=== PATIENT | female | born 1935 | race Caucasian/White ===

== ENCOUNTER → 2016-09-29 | Outpatient (CLI) | payer OTHER, MEDICARE ==
[~2016-09-29] MED LIST: ACET-1138 PO; ASPEC325 PO; ATEN50TA8 PO; CALC-51 PO; CARDIO PLUS PO; COEN100C7 PO; FRRG PO; HYDR25TA4 PO; LIDOCAINE 5% EXT; LOSA50TA6 PO; THYROID COMPLEX PO; ULT50X PO; [UNRECOGNIZED DRUG - OTHER] PO; [UNRECOGNIZED DRUG - OTHER] PO
--- NOTE | 2016-09-30 13:03 | MAMMOGRAPHY REPORT ---
BILATERAL DIGITAL SCREENING MAMMOGRAM WITH CAD: 09/29/2016 CLINICAL HISTORY: Routine screening examination. TECHNIQUE: Bilateral CC, MLO and repeat right MLO views were obtained. Current study was also evalu ated with a Computer Aided Detection (CAD) system. COMPARISON: Comparison is made to exams dated: 09/26/2015 mammogram, 09/23/2013 mammogram, 09/25/2014 mammogram, 12/19/2011 mammogram, 12/17/2010 mammogram, and 12/10/2009 mammogram - [facility]. BREAST COMPOSITION: There are scattered areas of fibroglandular density in both breasts. FINDINGS: There are a few benign calcifications in the breasts. Stable asymmetry in the lateral lef t breast. No suspicious mass, architectural distortion or cluster of microcalcifications is seen. IMPRESSION: ACR BI-RADS CATEGORY 1: NEGATIVE There is no mammographic evidence of malignancy. A 1 year screening mammogram is recommended. The p atient will receive written notification of the results. Approximately 10% of breast cancers are not detected with mammography. A negative mammographic repor t should not delay biopsy if a clinically suggestive mass is present. Sarah Dash M.D. ay/:09/29/2016 15:30:49 [employer] Business Analyst: Yvonne PERDUE(Milly)(M), [facility] letter sent: Normal 1/2 BI-RADS Code: ACR BI-RADS Category 1: Negative
== END | disposition home or self-care (01) ==
LOC: C.MAMM 10:08
PROVIDERS: ATTEND Family Medicine
DX: Z12.31 Encounter for screening mammogram for malignant neoplasm of breast (principal)

== ENCOUNTER → 2017-10-27 | Outpatient (CLI) | payer OTHER, MEDICARE ==
--- NOTE | 2017-10-28 14:14 | MAMMOGRAPHY REPORT ---
BILATERAL DIGITAL SCREENING MAMMOGRAM TOMOSYNTHESIS WITH CAD: 10/27/2017 CLINICAL HISTORY: Routine screening. Patient has no complaints. TECHNIQUE: Breast tomosynthesis in addition to standard 2D mammography was performed. Current study was also evaluated with a Computer Aided Detection (CAD) system. COMPARISON: Comparison is made to exams dated: 09/29/2016 mammogram, 09/26/2015 mammogram, 09/25/2014 m ammogram, 09/23/2013 mammogram, 12/19/2011 mammogram, and 12/10/2009 mammogram - [facility]ter. BREAST COMPOSITION: There are scattered areas of fibroglandular density in both breasts. FINDINGS: No suspicious masses, calcifications, or areas of architectural distortion are noted in ei ther breast. There has been no significant interval change compared to prior exams. Scattered bilater al benign-appearing calcifications are not significantly changed. IMPRESSION: ACR BI-RADS CATEGORY 2: BENIGN There is no mammographic evidence of malignancy. A 1 year screening mammogram is recommended. The pa tient will receive written notification of the results. Approximately 10% of breast cancers are not detected with mammography. A negative mammographic report should not delay biopsy if a clinically suggestive mass is present. Araceli Guerrier M.D. /:10/27/2017 15:56:45 Stove Polisher: Yvonne HERRMANN)(M), [facility] letter sent: Normal 1/2 BI-RADS Code: ACR BI-RADS Category 2: Benign
== END | disposition home or self-care (01) ==
LOC: C.MAMM 13:36
PROVIDERS: ATTEND Family Medicine
DX: Z12.31 Encounter for screening mammogram for malignant neoplasm of breast (principal)

== ENCOUNTER 2022-08-16 15:30 | Inpatient (IN) ==
[2022-08-16 16:12] LABS: Basophils # (auto) 0.04 K/uL (0-0.2); Basophils % (auto) 0.5 %; Eosinophils # (auto) 0.16 K/uL (0-0.50); Eosinophils % (auto) 2.1 %; Hematocrit (blood only) 39.5 % (34.1-44.9); Hemoglobin 13.4 g/dl (12.0-16.0); Immature Granulocytes # (auto) 0.02 K/uL (0.00-0.02); Immature Granulocytes % (auto) 0.3 %; Lymphocytes # (auto) 2.18 K/uL (1.2-3.4); Lymphocytes % (auto) 28.8 %; Mean Corpuscular Hemoglobin 31.5 pg (25.0-34.0); Mean Corpuscular Hgb Conc 33.9 g/dL (32.0-36.0); Mean Corpuscular Volume 92.7 fL (80.0-100.0); Mean Platelet Volume 10.8 fL (9.4-12.3); Monocytes # (auto) 0.45 K/uL (0.24-0.82); Monocytes % (auto) 5.9 %; Neutrophils # (auto) 4.72 K/uL (1.4-6.5); Neutrophils % (auto) 62.4 %; Platelet Count 235 K/uL (130-400); RDW Coefficient of Variation 13.9 % (11.5-14.5); RDW Standard Deviation 47.4 fL (36.4-46.3); Red Blood Count 4.26 M/uL (3.93-5.22); White Blood Count 7.57 K/ul (4.8-10.8)
[2022-08-16 16:34] LABS: Albumin Globulin Ratio 1.2 (0.9-2); Albumin Level 4.3 gm/dl (3.4-5.0); BUN Creatinine Ratio 33.8 (10-20); Bilirubin,Total 0.3 mg/dl (0.2-1.0); Calcium 9.4 mg/dl (8.5-10.1); Est GFR (African American) 94.5 ml/min; Est GFR (Non-African American) 81.5 ml/min; Globulin 3.6 gm/dl (2.5-4.0); Potassium 3.5 mmol/L (3.5-5.1); Total Protein 7.9 gm/dl (6.0-8.3)
[2022-08-16 16:39] LABS: Appearance Urine Clear (Clear); Bacteria Urine Automated Negative (Negative); Bilirubin Urine Negative (Negative); Blood Urine Negative (Negative); Color Urine Dark Yellow; Epithelial Cell Urine Auto >30 /lpf (0-5); Glucose Urine UA Negative (Negative); Ketones Urine Negative (Negative); Leukocyte Esterase Urine Trace (Negative); Nitrite Urine Negative (Negative); Protein Urine Negative (Negative); RBC Urine Automated 0-4 /hpf (0-4); Specific Gravity Urine 1.013 (1.000-1.030); Urobilinogen Urine Negative (Negative); pH Urine 5.5 (4.5-7.5)
--- NOTE | 2022-08-16 17:20 | XRay Report ---
XR chest 1V portable HISTORY: 86 years-old Female chest pain . Acute chest pain COMPARISON: Chest 04/09/2021 TECHNIQUE: AP view of the chest FINDINGS: Cardiac silhouette is enlarged. Atherosclerosis of the aorta. No pneumothorax, pleural effusion, airs pace consolidation or overt pulmonary edema. Degenerative changes of the shoulders and spine. IMPRESSION: No acute process. ACT 112: Negative or not required by law. The above report was generated using voice recognition software. It may contain grammatical, syntax o r spelling errors. Electronically signed by: Carloz Medina M.D. 08/16/2022 5:18 PM
--- NOTE | 2022-08-16 17:22 | Emergency Department Note ---
Impression & Plan Hypertension, Palpitations, Abnormal ECG ED Provider Note NAME: CHELLY SEYMOUR AGE: 86 SEX: F : 1935 ARRIVES VIA: Walk-In INFORMANT: Patient, daughter ED PROVIDER(S): Ander Loco DO CHIEF COMPLAINT: Feeling her heart race HPI: Patient is an 86-year-old female who presents the ER following feeling her heart race. This occurred around 3pm today. She felt her heart racing up to 108. She felt weak. She denies any headache or change in vision. This was coming going intermittently. She denies any chest pain. This lasted for about 20 minutes. No belly pain, nausea, vomiting or diarrhea. No dysuria, urgency, or frequency. She did check her blood pressure and it was elevated around nearly 200. She notes her blood pressure medications have been taken today as previously prescribed. PAST MEDICAL HISTORY:See Below PAST SURGICAL HISTORY:See Below FAMILY HISTORY:See Below SOCIAL HISTORY:See Below HOME MEDICATIONS:See Below ALLERGIES:See Below VITALS:See Below PHYSICAL EXAMINATION: GENERAL: Sitting up in bed, alert, well appearing, well nourished, no distress, non-toxic EYE EXAM: normal conjunctiva. PERRL and EOM's intact. OROPHARYNX: no exudate, no erythema, lips, buccal mucosa, and tongue normal and mucous membranes are moist NECK: supple, no nuchal rigidity, no adenopathy, non-tender LUNGS: Clear to auscultation. Normal chest wall mechanics HEART: no murmurs, S1 normal and S2 normal ABDOMEN: abdomen soft, non-tender, normo-active bowel sounds, no masses, no rebound or guarding. UPPER EXTREMITIES: upper extremities are grossly normal. LOWER EXTREMITIES: No pitting edema. NEURO EXAM: Normal sensorium, cranial nerves II-XII grossly intact, normal speech, no weakness of arms, no weakness of legs. No drift. Finger to nose intact. Gross sensation intact. MEDICAL DECISION MAKING: Patient is an 86-year-old female who presents the ER for palpitations and elevated blood pressure. Systolic pressures were 200. IV was established blood work is obtained. Labs show no significant leukocytosis or anemia. External records were reviewed. BMP with no hyperkalemia or acidosis. Glucose mildly elevated 115. No transaminitis. Troponins were negative. TSH unremarkable. UA was clean. COVID-negative. Portable AP upright 1 view of the chest per my read was unremarkable. Patient was given IV hydralazine. Systolic pressure trended down to 170s. EKG was changed from previous which was over a year ago. She was updated bedside with the elevated blood pressures. Discussed with hospitalist for further evaluation regards to presentation work-up and treatment. Triage Nursing notes reviewed. Limited review of prior medical records performed Vital Signs: reviewed and remarkable for no significant abnormalities Differential diagnosis: Cardiac ischemia, aortic dissection, pulmonary embolism, pneumothorax, pneumonia, pericarditis, myocarditis, esophageal rupture, GERD, cholecystitis, pancreatitis, musculoskeletal, as well as other pathologies. ER treatment provided: See below Diagnostics interpreted by me include EKG and cardiac monitoring as listed below: -Cardiac Monitoring: An order was placed for continuous cardiac monitoring. The monitor shows a rate of 70 with sinus rhythm. -ECG: Sinus rhythm rate 65 Left axis No PVCs QTC 424 T wave inversion in the high lateral leads EKG has slightly changed in comparison to previous back in 2020 -Laboratory studies:Interpreted by me as stated above in MDM and shown below. Imaging studies: Xrays: As interpreted by me: Portable AP upright 1 view of the chest unremarkable CTs show: none Consultation(s): Discussed with Dr. Kennedy from [facility] service in regards to presentation work-up and treatment. Procedures:none Critical Care: None Past Med/Surg History Medical History Acid reflux Arthritis Cardiac murmur dx 1 yr ago> Dr. Solano Carpal tunnel syndrome Diverticular disease High cholesterol HTN (hypertension) Nausea and vomiting after administration of anesthetic agent Osteoarthritis Palpitations on occasion Pre-diabetes no meds just diet Sleep apnea hx of> no longer using cpap> no issues with Slow to wake up after anesthesia Surgical History History of arthroscopy left knee History of carpal tunnel surgery of right wrist 07/25/2020 [place] History of colonoscopy History of dilatation and curettage History of esophagogastroduodenoscopy (EGD) History of laparoscopy History of tonsillectomy History of tooth extraction S/P knee replacement left S/P LASIK (laser assisted in situ keratomileusis) Family History Denies family history of Ovarian cancer Breast cancer Colorectal cancer Social History Smoking Status: Never smoker Second Hand Exposure: Yes (uncle smoked when lived with them as kid); Hx Alcohol Use: No Hx Substance Use: No Preferred Language: Maltese Communication Ability: Effective Plastic Manager Required: No Beliefs That Will Affect Care: None marital status: Single Current Living Situation: Alone Feels Safe at Home: Yes Assistive Devices: Glasses and Hearing Aid - Bilateral Allergies Allergies Allergy/AdvReac Type Severity Reaction Status Date / Time adhesive tape Allergy Intermediate Rash Verified 08/16/22 19:29 levofloxacin Allergy Intermediate Hives Verified 08/16/22 19:29 metformin Allergy Intermediate Chest Pain Verified 08/16/22 19:29 clarithromycin Allergy Mild Sore Verified 08/16/22 19:29 throat/tongue erythromycin base Allergy Mild SOB Verified 08/16/22 19:29 lisinopril Allergy Mild Cough Verified 08/16/22 19:29 glipizide Allergy Unknown Unknown Verified 08/16/22 19:33 Penicillins Allergy Unknown HIVES Verified 08/16/22 19:29 guaifenesin AdvReac Intermediate Dystonia Verified 08/16/22 19:29 metoprolol AdvReac Intermediate KNIGHT OR Verified 08/16/22 19:29 SOMETHING, FELT BAD sulfamethoxazole AdvReac Intermediate Nausea/vomi Verified 08/16/22 19:29 ting trimethoprim AdvReac Intermediate Nausea/vomi Verified 08/16/22 19:29 ting hydralazine AdvReac Palpitation Verified 08/16/22 20:47 s Home Meds Home Medications Medication Instructions Recorded Confirmed losartan 100 mg tablet (Cozaar) 100 mg PO QAM 04/09/21 08/16/22 potassium chloride 20 mEq/15 mL 20 meq PO BID 04/09/21 08/16/22 oral liquid atenolol 50 mg tablet 50 mg PO DAILY 06/12/22 08/16/22 ergocalciferol (vitamin D2) 200 100 mcg PO DAILY 08/16/22 08/16/22 mcg/mL (8,000 unit/mL) oral drops furosemide 20 mg tablet 20 mg PO QAM 08/16/22 08/16/22 hydrochlorothiazide 25 mg tablet 12.5 mg PO QAM 08/16/22 08/16/22 Previous Rx's Medication Instructions Recorded meclizine 12.5 mg tablet 12.5 mg PO TID PRN dizziness #20 06/12/22 tabs Results & Data (ED) Vital Signs Vital Signs - 24 hr 08/16/22 15:31 08/16/22 16:48 08/16/22 17:05 Temperature 36.8 C Temperature Source Temporal Artery Scan Pulse Rate 72 66 Pulse Rate [Right Brachial] 63 Pulse Rate from SpO2 Sensor Pulse Rhythm [Right Brachial] Regular Pulse Strength [Right Brachial] Normal Respiratory Rate 12 19 19 Respiratory Effort / Characteristics Non-Labored Spontaneous Respiratory Depth Normal Respiratory Pattern Regular Blood Pressure 199/77 H Blood Pressure [Right Arm] 196/61 H Blood Pressure Mean 117 Blood Pressure Mean [Right Arm] 106 Blood Pressure Position [Right Arm] Lying Pulse Oximetry 96 97 Oxygen Delivery Method Room Air Room Air Sepsis Recent Fever Within 48 Hours No Sepsis New/Unexplained Change in Mental Status No Sepsis Action Taken by Nursing No Action Required 08/16/22 17:10 08/16/22 17:20 08/16/22 17:30 Temperature Temperature Source Pulse Rate 62 62 Pulse Rate [Right Brachial] Pulse Rate from SpO2 Sensor 62 62 Pulse Rhythm [Right Brachial] Pulse Strength [Right Brachial] Respiratory Rate 14 17 Respiratory Effort / Characteristics Respiratory Depth Respiratory Pattern Blood Pressure 172/72 H Blood Pressure [Right Arm] Blood Pressure Mean 105 Blood Pressure Mean [Right Arm] Blood Pressure Position [Right Arm] Pulse Oximetry 95 94 Oxygen Delivery Method Sepsis Recent Fever Within 48 Hours Sepsis New/Unexplained Change in Mental Status Sepsis Action Taken by Nursing 08/16/22 17:30 08/16/22 17:40 08/16/22 17:50 Temperature Temperature Source Pulse Rate 61 61 58 L Pulse Rate [Right Brachial] Pulse Rate from SpO2 Sensor 61 61 59 L Pulse Rhythm [Right Brachial] Pulse Strength [Right Brachial] Respiratory Rate 16 13 17 Respiratory Effort / Characteristics Respiratory Depth Respiratory Pattern Blood Pressure Blood Pressure [Right Arm] Blood Pressure Mean Blood Pressure Mean [Right Arm] Blood Pressure Position [Right Arm] Pulse Oximetry 96 96 95 Oxygen Delivery Method Sepsis Recent Fever Within 48 Hours Sepsis New/Unexplained Change in Mental Status Sepsis Action Taken by Nursing 08/16/22 19:13 08/16/22 19:42 08/16/22 18:00 Temperature Temperature Source Pulse Rate Pulse Rate [Right Brachial] 80 67 Pulse Rate from SpO2 Sensor Pulse Rhythm [Right Brachial] Regular Regular Pulse Strength [Right Brachial] Normal Normal Respiratory Rate 19 19 Respiratory Effort / Characteristics Non-Labored Spontaneous Non-Labored Spontaneous Respiratory Depth Normal Normal Respiratory Pattern Blood Pressure 193/72 H Blood Pressure [Right Arm] 196/81 H 187/74 H Blood Pressure Mean 112 Blood Pressure Mean [Right Arm] 119 111 Blood Pressure Position [Right Arm] Lying Pulse Oximetry 98 97 Oxygen Delivery Method Room Air Room Air Sepsis Recent Fever Within 48 Hours Sepsis New/Unexplained Change in Mental Status Sepsis Action Taken by Nursing 08/16/22 18:00 08/16/22 18:10 08/16/22 18:15 Temperature Temperature Source Pulse Rate 62 62 Pulse Rate [Right Brachial] Pulse Rate from SpO2 Sensor 62 62 Pulse Rhythm [Right Brachial] Pulse Strength [Right Brachial] Respiratory Rate 15 16 Respiratory Effort / Characteristics Respiratory Depth Respiratory Pattern Blood Pressure 183/69 H Blood Pressure [Right Arm] Blood Pressure Mean 107 Blood Pressure Mean [Right Arm] Blood Pressure Position [Right Arm] Pulse Oximetry 94 95 Oxygen Delivery Method Sepsis Recent Fever Within 48 Hours Sepsis New/Unexplained Change in Mental Status Sepsis Action Taken by Nursing 08/16/22 18:15 08/16/22 18:20 08/16/22 18:30 Temperature Temperature Source Pulse Rate 63 66 Pulse Rate [Right Brachial] Pulse Rate from SpO2 Sensor 63 65 Pulse Rhythm [Right Brachial] Pulse Strength [Right Brachial] Respiratory Rate 16 16 Respiratory Effort / Characteristics Respiratory Depth Respiratory Pattern Blood Pressure 179/70 H Blood Pressure [Right Arm] Blood Pressure Mean 106 Blood Pressure Mean [Right Arm] Blood Pressure Position [Right Arm] Pulse Oximetry 97 98 Oxygen Delivery Method Sepsis Recent Fever Within 48 Hours Sepsis New/Unexplained Change in Mental Status Sepsis Action Taken by Nursing 08/16/22 18:30 08/16/22 18:40 08/16/22 18:45 Temperature Temperature Source Pulse Rate 66 67 69 Pulse Rate [Right Brachial] Pulse Rate from SpO2 Sensor 66 69 69 Pulse Rhythm [Right Brachial] Pulse Strength [Right Brachial] Respiratory Rate 20 20 16 Respiratory Effort / Characteristics Respiratory Depth Respiratory Pattern Blood Pressure Blood Pressure [Right Arm] Blood Pressure Mean Blood Pressure Mean [Right Arm] Blood Pressure Position [Right Arm] Pulse Oximetry 98 98 99 Oxygen Delivery Method Sepsis Recent Fever Within 48 Hours Sepsis New/Unexplained Change in Mental Status Sepsis Action Taken by Nursing 08/16/22 18:45 08/16/22 18:50 08/16/22 19:06 Temperature Temperature Source Pulse Rate 82 Pulse Rate [Right Brachial] Pulse Rate from SpO2 Sensor 76 Pulse Rhythm [Right Brachial] Pulse Strength [Right Brachial] Respiratory Rate 15 Respiratory Effort / Characteristics Respiratory Depth Respiratory Pattern Blood Pressure 189/82 H 196/81 H Blood Pressure [Right Arm] Blood Pressure Mean 117 119 Blood Pressure Mean [Right Arm] Blood Pressure Position [Right Arm] Pulse Oximetry 99 Oxygen Delivery Method Sepsis Recent Fever Within 48 Hours Sepsis New/Unexplained Change in Mental Status Sepsis Action Taken by Nursing 08/16/22 19:06 08/16/22 19:10 08/16/22 19:15 Temperature Temperature Source Pulse Rate 82 68 68 Pulse Rate [Right Brachial] Pulse Rate from SpO2 Sensor 72 69 68 Pulse Rhythm [Right Brachial] Pulse Strength [Right Brachial] Respiratory Rate 17 17 18 Respiratory Effort / Characteristics Respiratory Depth Respiratory Pattern Blood Pressure Blood Pressure [Right Arm] Blood Pressure Mean Blood Pressure Mean [Right Arm] Blood Pressure Position [Right Arm] Pulse Oximetry 98 98 98 Oxygen Delivery Method Sepsis Recent Fever Within 48 Hours Sepsis New/Unexplained Change in Mental Status Sepsis Action Taken by Nursing 08/16/22 19:15 08/16/22 19:20 08/16/22 19:30 Temperature Temperature Source Pulse Rate 68 Pulse Rate [Right Brachial] Pulse Rate from SpO2 Sensor 68 Pulse Rhythm [Right Brachial] Pulse Strength [Right Brachial] Respiratory Rate 20 Respiratory Effort / Characteristics Respiratory Depth Respiratory Pattern Blood Pressure 173/75 H 173/62 H Blood Pressure [Right Arm] Blood Pressure Mean 107 99 Blood Pressure Mean [Right Arm] Blood Pressure Position [Right Arm] Pulse Oximetry 98 Oxygen Delivery Method Sepsis Recent Fever Within 48 Hours Sepsis New/Unexplained Change in Mental Status Sepsis Action Taken by Nursing 08/16/22 19:30 08/16/22 19:40 08/16/22 19:41 Temperature Temperature Source Pulse Rate 71 83 79 Pulse Rate [Right Brachial] Pulse Rate from SpO2 Sensor 71 82 79 Pulse Rhythm [Right Brachial] Pulse Strength [Right Brachial] Respiratory Rate 19 19 18 Respiratory Effort / Characteristics Respiratory Depth Respiratory Pattern Blood Pressure Blood Pressure [Right Arm] Blood Pressure Mean Blood Pressure Mean [Right Arm] Blood Pressure Position [Right Arm] Pulse Oximetry 96 98 97 Oxygen Delivery Method Sepsis Recent Fever Within 48 Hours Sepsis New/Unexplained Change in Mental Status Sepsis Action Taken by Nursing 08/16/22 19:41 08/16/22 19:45 08/16/22 19:45 Temperature Temperature Source Pulse Rate 69 Pulse Rate [Right Brachial] Pulse Rate from SpO2 Sensor 68 Pulse Rhythm [Right Brachial] Pulse Strength [Right Brachial] Respiratory Rate 20 Respiratory Effort / Characteristics Respiratory Depth Respiratory Pattern Blood Pressure 187/74 H 176/89 H Blood Pressure [Right Arm] Blood Pressure Mean 111 118 Blood Pressure Mean [Right Arm] Blood Pressure Position [Right Arm] Pulse Oximetry 97 Oxygen Delivery Method Sepsis Recent Fever Within 48 Hours Sepsis New/Unexplained Change in Mental Status Sepsis Action Taken by Nursing 08/16/22 19:50 08/16/22 19:58 08/16/22 19:58 Temperature Temperature Source Pulse Rate 79 82 Pulse Rate [Right Brachial] Pulse Rate from SpO2 Sensor 81 84 Pulse Rhythm [Right Brachial] Pulse Strength [Right Brachial] Respiratory Rate 26 H 17 Respiratory Effort / Characteristics Respiratory Depth Respiratory Pattern Blood Pressure 168/56 H Blood Pressure [Right Arm] Blood Pressure Mean 93 Blood Pressure Mean [Right Arm] Blood Pressure Position [Right Arm] Pulse Oximetry 96 99 Oxygen Delivery Method Sepsis Recent Fever Within 48 Hours Sepsis New/Unexplained Change in Mental Status Sepsis Action Taken by Nursing 08/16/22 20:00 Temperature Temperature Source Pulse Rate 99 H Pulse Rate [Right Brachial] Pulse Rate from SpO2 Sensor 98 H Pulse Rhythm [Right Brachial] Pulse Strength [Right Brachial] Respiratory Rate 22 Respiratory Effort / Characteristics Respiratory Depth Respiratory Pattern Blood Pressure Blood Pressure [Right Arm] Blood Pressure Mean Blood Pressure Mean [Right Arm] Blood Pressure Position [Right Arm] Pulse Oximetry 99 Oxygen Delivery Method Sepsis Recent Fever Within 48 Hours Sepsis New/Unexplained Change in Mental Status Sepsis Action Taken by Nursing Laboratory Data 08/16/22 16:05 08/16/22 16:05 Lab Results 08/16/22 08/16/22 08/16/22 Range/Units 16:05 16:05 16:05 WBC 7.57 (4.8-10.8) K/ul RBC 4.26 (3.93-5.22) M/uL Hgb 13.4 (12.0-16.0) g/dl Hct 39.5 (34.1-44.9) % MCV 92.7 (80.0-100.0) fL MCH 31.5 (25.0-34.0) pg MCHC 33.9 (32.0-36.0) g/dL RDW Std Deviation 47.4 H (36.4-46.3) fL RDW Coeff of Tika 13.9 (11.5-14.5) % Plt Count 235 (130-400) K/uL MPV 10.8 (9.4-12.3) fL Immature Gran % (Auto) 0.3 % Neut % (Auto) 62.4 % Lymph % (Auto) 28.8 % [place] % (Auto) 5.9 % Eos % (Auto) 2.1 % Baso % (Auto) 0.5 % Neut # (Auto) 4.72 (1.4-6.5) K/uL Lymph # (Auto) 2.18 (1.2-3.4) K/uL [place] # (Auto) 0.45 (0.24-0.82) K/uL Eos # (Auto) 0.16 (0-0.50) K/uL Baso # (Auto) 0.04 (0-0.2) K/uL Immature Gran # (Auto) 0.02 (0.00-0.02) K/uL Sodium 136 (136-145) mmol/L Potassium 3.5 (3.5-5.1) mmol/L Chloride 100 (98-107) mmol/L Carbon Dioxide 28 (21-32) mmol/L Anion Gap 8 (3-11) BUN 22 (6-23) mg/dl Creatinine 0.65 (0.6-1.2) mg/dl Est Cr Clr Drug Dosing 66.0 ml/min Est GFR ( Amer) 94.5 ml/min Est GFR (Non-Af Amer) 81.5 ml/min BUN/Creatinine Ratio 33.8 H (10-20) Glucose 115 H (70-99(Fasting)) mg/dl Calcium 9.4 (8.5-10.1) mg/dl Magnesium 1.9 (1.7-2.4) mg/dl Total Bilirubin 0.3 (0.2-1.0) mg/dl AST 28 (13-39) U/L ALT 29 (7-52) U/L Alkaline Phosphatase 35 (34-104) U/L Troponin I High Sens 5.7 (0-14) pg/ml B-Natriuretic Peptide (0-100) pg/ml Total Protein 7.9 (6.0-8.3) gm/dl Albumin 4.3 (3.4-5.0) gm/dl Globulin 3.6 (2.5-4.0) gm/dl Albumin/Globulin Ratio 1.2 (0.9-2) TSH (0.300-4.500) uIu/ml Urine Color Urine Appearance (Clear) Urine pH (4.5-7.5) Ur Specific [place] (1.000-1.030) Urine Protein (Negative) Urine Glucose (UA) (Negative) Urine Ketones (Negative) Urine Blood (Negative) Urine Nitrite (Negative) Urine Bilirubin (Negative) Urine Urobilinogen (Negative) Ur Leukocyte Esterase (Negative) Urine WBC (Auto) (0-5) /hpf Urine RBC (Auto) (0-4) /hpf U Hyaline Cast (Auto) (0-5) /lpf U Epithel Cells (Auto) (0-5) /lpf Urine Bacteria (Auto) (Negative) SARS-CoV-2, RNA, NAAT (NEGATIVE) 08/16/22 08/16/22 08/16/22 Range/Units 16:05 17:05 19:05 WBC (4.8-10.8) K/ul RBC (3.93-5.22) M/uL Hgb (12.0-16.0) g/dl Hct (34.1-44.9) % MCV (80.0-100.0) fL MCH (25.0-34.0) pg MCHC (32.0-36.0) g/dL RDW Std Deviation (36.4-46.3) fL RDW Coeff of Tika (11.5-14.5) % Plt Count (130-400) K/uL MPV (9.4-12.3) fL Immature Gran % (Auto) % Neut % (Auto) % Lymph % (Auto) % [place] % (Auto) % Eos % (Auto) % Baso % (Auto) % Neut # (Auto) (1.4-6.5) K/uL Lymph # (Auto) (1.2-3.4) K/uL [place] # (Auto) (0.24-0.82) K/uL Eos # (Auto) (0-0.50) K/uL Baso # (Auto) (0-0.2) K/uL Immature Gran # (Auto) (0.00-0.02) K/uL Sodium (136-145) mmol/L Potassium (3.5-5.1) mmol/L Chloride (98-107) mmol/L Carbon Dioxide (21-32) mmol/L Anion Gap (3-11) BUN (6-23) mg/dl Creatinine (0.6-1.2) mg/dl Est Cr Clr Drug Dosing ml/min Est GFR ( Amer) ml/min Est GFR (Non-Af Amer) ml/min BUN/Creatinine Ratio (10-20) Glucose (70-99(Fasting)) mg/dl Calcium (8.5-10.1) mg/dl Magnesium (1.7-2.4) mg/dl Total Bilirubin (0.2-1.0) mg/dl AST (13-39) U/L ALT (7-52) U/L Alkaline Phosphatase (34-104) U/L Troponin I High Sens (0-14) pg/ml B-Natriuretic Peptide (0-100) pg/ml Total Protein (6.0-8.3) gm/dl Albumin (3.4-5.0) gm/dl Globulin (2.5-4.0) gm/dl Albumin/Globulin Ratio (0.9-2) TSH 1.996 (0.300-4.500) uIu/ml Urine Color Dark Yellow Urine Appearance Clear (Clear) Urine pH 5.5 (4.5-7.5) Ur Specific [place] 1.013 (1.000-1.030) Urine Protein Negative (Negative) Urine Glucose (UA) Negative (Negative) Urine Ketones Negative (Negative) Urine Blood Negative (Negative) Urine Nitrite Negative (Negative) Urine Bilirubin Negative (Negative) Urine Urobilinogen Negative (Negative) Ur Leukocyte Esterase Trace H (Negative) Urine WBC (Auto) 1-5 (0-5) /hpf Urine RBC (Auto) 0-4 (0-4) /hpf U Hyaline Cast (Auto) 1-5 (0-5) /lpf U Epithel Cells (Auto) >30 H (0-5) /lpf Urine Bacteria (Auto) Negative (Negative) SARS-CoV-2, RNA, NAAT NEGATIVE (NEGATIVE) 08/16/22 08/16/22 Range/Units 19:17 19:41 WBC (4.8-10.8) K/ul RBC (3.93-5.22) M/uL Hgb (12.0-16.0) g/dl Hct (34.1-44.9) % MCV (80.0-100.0) fL MCH (25.0-34.0) pg MCHC (32.0-36.0) g/dL RDW Std Deviation (36.4-46.3) fL RDW Coeff of Tika (11.5-14.5) % Plt Count (130-400) K/uL MPV (9.4-12.3) fL Immature Gran % (Auto) % Neut % (Auto) % Lymph % (Auto) % [place] % (Auto) % Eos % (Auto) % Baso % (Auto) % Neut # (Auto) (1.4-6.5) K/uL Lymph # (Auto) (1.2-3.4) K/uL [place] # (Auto) (0.24-0.82) K/uL Eos # (Auto) (0-0.50) K/uL Baso # (Auto) (0-0.2) K/uL Immature Gran # (Auto) (0.00-0.02) K/uL Sodium (136-145) mmol/L Potassium (3.5-5.1) mmol/L Chloride (98-107) mmol/L Carbon Dioxide (21-32) mmol/L Anion Gap (3-11) BUN (6-23) mg/dl Creatinine (0.6-1.2) mg/dl Est Cr Clr Drug Dosing ml/min Est GFR ( Amer) ml/min Est GFR (Non-Af Amer) ml/min BUN/Creatinine Ratio (10-20) Glucose (70-99(Fasting)) mg/dl Calcium (8.5-10.1) mg/dl Magnesium (1.7-2.4) mg/dl Total Bilirubin (0.2-1.0) mg/dl AST (13-39) U/L ALT (7-52) U/L Alkaline Phosphatase (34-104) U/L Troponin I High Sens 6.6 (0-14) pg/ml B-Natriuretic Peptide 32 (0-100) pg/ml Total Protein (6.0-8.3) gm/dl Albumin (3.4-5.0) gm/dl Globulin (2.5-4.0) gm/dl Albumin/Globulin Ratio (0.9-2) TSH (0.300-4.500) uIu/ml Urine Color Urine Appearance (Clear) Urine pH (4.5-7.5) Ur Specific [place] (1.000-1.030) Urine Protein (Negative) Urine Glucose (UA) (Negative) Urine Ketones (Negative) Urine Blood (Negative) Urine Nitrite (Negative) Urine Bilirubin (Negative) Urine Urobilinogen (Negative) Ur Leukocyte Esterase (Negative) Urine WBC (Auto) (0-5) /hpf Urine RBC (Auto) (0-4) /hpf U Hyaline Cast (Auto) (0-5) /lpf U Epithel Cells (Auto) (0-5) /lpf Urine Bacteria (Auto) (Negative) SARS-CoV-2, RNA, NAAT (NEGATIVE) Administered Medications Sodium Chloride (Nss) 500 mls @ 500 mls/hr IV .Q1H DACIA Stop: 08/16/22 21:44 Last Admin: 08/16/22 21:06 Dose: 500 mls/hr Documented By: PAU Discontinued Medications Hydralazine HCl (Hydralazine Hcl 20 Mg/Ml Vial) 5 mg IV NOW ONE Stop: 08/16/22 17:59 Last Admin: 08/16/22 18:01 Dose: 5 mg Documented By: PAU Hydralazine HCl (Hydralazine Hcl 20 Mg/Ml Vial) 10 mg IV Q4H PRN PRN Reason: Hypertension Stop: 09/15/22 19:08 Last Admin: 08/16/22 19:44 Dose: 10 mg Documented By: PAU Imaging Data Radiologist's Impression: Chest X-Ray 08/16/22 17:01 XR chest 1V portable HISTORY: 86 years-old Female chest pain . Acute chest pain COMPARISON: Chest 04/09/2021 TECHNIQUE: AP view of the chest FINDINGS: Cardiac silhouette is enlarged. Atherosclerosis of the aorta. No pneumothorax, pleural effusion, airspace consolidation or overt pulmonary edema. Degenerative changes of the shoulders and spine. IMPRESSION: No acute process. ACT 112: Negative or not required by law. The above report was generated using voice recognition software. It may contain grammatical, syntax or spelling errors. Electronically signed by: Carloz Medina M.D. 08/16/2022 5:18 PM Discharge Plan Visit Data Chief Complaint: Hypertension Stated Complaint: HYPERTENSION, SHAKINESS, TACHYCARDIA, HEADACHE ED Provider: Ander Loco Discharge Problem: Hypertension, Palpitations, Abnormal ECG Forms Stand Alone Forms: [facility] Prescriptions Prescriptions: No Action potassium chloride 20 mEq/15 mL Liquid 20 meq PO BID losartan [Cozaar] 100 mg tablet 100 mg PO QAM hydrochlorothiazide 25 mg Tablet 12.5 mg PO QAM furosemide 20 mg Tablet 20 mg PO QAM ergocalciferol (vitamin D2) [Vitamin D2] 200 mcg/mL (8,000 unit/mL) Drops 100 mcg PO DAILY Rx Instructions: 1/2 dropper full atenolol 50 mg Tablet 50 mg PO DAILY meclizine 12.5 mg tablet 12.5 mg PO TID PRN (Reason: dizziness) Qty: 20 0RF Referrals Referrals: Vikki Stock PA-C [Primary Care Provider] -
[2022-08-16 17:34] LABS: Magnesium 1.9 mg/dl (1.7-2.4)
[2022-08-16 17:39] LABS: Troponin I High Sensitivity 5.7 pg/ml (0-14)
[2022-08-16] MEDS ORDERED: hydrALAZINE HCL 20 MG/ML VIAL IV ONE (17:58)
[2022-08-16] MEDS ORDERED: ALUMINUM/MAGNESIUM SUSP 30 ML UDC PO PRN (19:02)
[2022-08-16] MEDS ORDERED: ONDANSETRON INJ 2 MG/ML 2 ML VIAL IV PRN (19:02)
[2022-08-16] MEDS ORDERED: ACETAMINOPHEN 325 MG TAB PO PRN (19:02)
[2022-08-16] MEDS ORDERED: NITROGLYCERIN SL 0.4 MG/TAB TAB SL PRN (19:02)
[2022-08-16] MEDS ORDERED: MAGNESIUM HYDROXIDE SUSP 30 ML UDC PO PRN (19:02)
[2022-08-16] MEDS ORDERED: LABETALOL HCL IV 5 MG/ML 20ML IV PRN (19:09)
[2022-08-16] MEDS ORDERED: hydrALAZINE HCL 20 MG/ML VIAL IV PRN (19:09)
--- NOTE | 2022-08-16 19:39 | History & Physical Report ---
Date of Service August 16, 2022 Assessment & Plan (1) Hypertension: Plan #. Chest discomfort #. Hypertensive Urgency Patient comes in with chest discomfort associated with elevated blood pressure at home. Admitting blood pressure of 199/77, admitting troponin WNL, admitting EKG with sinus rhythm with first-degree AV block and nonspecific TW abn. Admitting CXR with no acute findings. Trend troponin, telemetry monitoring, EKG in a.m. and with chest pain. Echo. IV blood pressure medications, resume home blood pressure medications. #. Other chronic medical conditions: Resume home meds Heparin subcu Full code History of Present Illness Chief Complaint: chest discomfort/uncontrolled BP Primary Care Provider: Vikki Stock PA-C 86-year-old lady with PMH of prediabetes, HLD, sleep apnea, HTN, ventricular ectopy, GERD presented to the ED 08/16 with complaint of " not feeling normal in her chest". Per patient says started feeling heaviness in the chest around 2:30 PM while she was sewing, no radiation, her blood pressure was elevated at 180/90, pulse she took at home was 108 at highest, had some perceived difficulty with breathing, denies nausea/sweating/palpitation. Patient denies any cough/sore throat/acute changes in her bowel or bladder habit/abnormal appetite/pain anywhere in the body. Patient denies use of smoke tobacco/alcohol use/recreational drug use. Full code as per my discussion with the patient. 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 Family history positive for massive CA in her mother at age 63, reports " lots of heart problems including bypass surgery" in her father. Follows cardiology every 6-month. Denies any cancer in the family. Medications were reviewed with the patient at bedside. Patient's daughter Polina was present at bedside. Plan of care discussed with the patient and her daughter. Allergies Allergy/AdvReac Type Severity Reaction Status Date / Time adhesive tape Allergy Intermediate Rash Verified 08/16/22 19:29 levofloxacin Allergy Intermediate Hives Verified 08/16/22 19:29 metformin Allergy Intermediate Chest Pain Verified 08/16/22 19:29 clarithromycin Allergy Mild Sore Verified 08/16/22 19:29 throat/tongue erythromycin base Allergy Mild SOB Verified 08/16/22 19:29 lisinopril Allergy Mild Cough Verified 08/16/22 19:29 glipizide Allergy Unknown Unknown Verified 08/16/22 19:33 Penicillins Allergy Unknown HIVES Verified 08/16/22 19:29 guaifenesin AdvReac Intermediate Dystonia Verified 08/16/22 19:29 metoprolol AdvReac Intermediate KNIGHT OR Verified 08/16/22 19:29 SOMETHING, FELT BAD sulfamethoxazole AdvReac Intermediate Nausea/vomi Verified 08/16/22 19:29 ting trimethoprim AdvReac Intermediate Nausea/vomi Verified 08/16/22 19:29 ting Home Medications Medication Instructions Recorded Confirmed Type losartan 100 mg tablet (Cozaar) 100 mg PO QAM 04/09/21 06/12/22 History potassium chloride 20 mEq/15 mL 20 meq PO BID 04/09/21 08/16/22 History oral liquid atenolol 50 mg tablet 50 mg PO DAILY 06/12/22 06/12/22 History meclizine 12.5 mg tablet 12.5 mg PO TID PRN dizziness #20 06/12/22 08/16/22 Rx tabs ergocalciferol (vitamin D2) 200 100 mcg PO DAILY 08/16/22 08/16/22 History mcg/mL (8,000 unit/mL) oral drops furosemide 20 mg tablet 20 mg PO QAM 08/16/22 08/16/22 History hydrochlorothiazide 25 mg tablet 12.5 mg PO QAM 08/16/22 08/16/22 History Past Med/Surg History Medical History Acid reflux Arthritis Cardiac murmur dx 1 yr ago> Dr. Solano Carpal tunnel syndrome Diverticular disease High cholesterol HTN (hypertension) Nausea and vomiting after administration of anesthetic agent Osteoarthritis Palpitations on occasion Pre-diabetes no meds just diet Sleep apnea hx of> no longer using cpap> no issues with Slow to wake up after anesthesia Surgical History History of arthroscopy left knee History of carpal tunnel surgery of right wrist 07/25/2020 [place] History of colonoscopy History of dilatation and curettage History of esophagogastroduodenoscopy (EGD) History of laparoscopy History of tonsillectomy History of tooth extraction S/P knee replacement left S/P LASIK (laser assisted in situ keratomileusis) Family History Denies family history of Ovarian cancer Breast cancer Colorectal cancer Social History Smoking Status: Never smoker Second Hand Exposure: Yes (uncle smoked when lived with them as kid); Hx Alcohol Use: No Hx Substance Use: No Preferred Language: Central African Communication Ability: Effective Insurance Investigator Required: No Beliefs That Will Affect Care: None marital status: Single Current Living Situation: Alone Feels Safe at Home: Yes Assistive Devices: Glasses and Hearing Aid - Bilateral Review of Systems Review of Systems: Negative otherwise mentioned in HPI. Physical Exam Physical Exam: GENERAL: Alert and oriented x3. NAD, on RA. HEENT: No pallor, no icterus. Pupils equal, round and reactive to light. Oral mucosa moist. NECK: No JVD, no neck masses. HEART: S1 and S2 heard. Regular rate and rhythm. No murmur, no gallop. RESPIRATORY SYSTEM: Normal AP diameter. No accessory muscle use. No wheezing, b/b crackles. ABDOMEN: Soft, bowel sounds present, nontender, no distention. CENTRAL NERVOUS SYSTEM: No facial droop. Speech is clear. Obeys simple commands. Moves extremities. EXTREMITIES: trace ble edema, no erythema seen. Results & Data Results & Data ([facility]) Vital Signs (Past 12 Hours) Vital Signs Temp Pulse Pulse Resp BP BP Pulse Ox 08/16/22 19:13 80 19 196/81 H 98 08/16/22 17:50 58 L 17 95 08/16/22 17:40 61 13 96 08/16/22 17:30 61 16 96 08/16/22 17:30 172/72 H 08/16/22 17:20 62 17 94 08/16/22 17:10 62 14 95 08/16/22 17:05 66 19 08/16/22 16:48 63 19 196/61 H 97 08/16/22 15:31 36.8 C 72 12 199/77 H 96 O2 Del Method 08/16/22 19:13 Room Air 08/16/22 17:50 08/16/22 17:40 08/16/22 17:30 08/16/22 17:30 08/16/22 17:20 08/16/22 17:10 08/16/22 17:05 08/16/22 16:48 Room Air 08/16/22 15:31 Room Air Code Status & VTE Plan VTE Prophylaxis Plan VTE Prophylaxis will be ordered: Yes
[2022-08-16] MEDS ORDERED: SODIUM CHLORIDE 0.9% 500 ML IV SCH ×2 (20:45→21:00)
[2022-08-16] MEDS ORDERED: HEPARIN SOD 5,000 UNIT/0.5 ML VIAL SQ SCH (21:00)
[2022-08-16] MEDS ORDERED: METOPROLOL TARTRATE 1 MG/ML VIAL IV STA (21:12)
[2022-08-16] MEDS ORDERED: ATENOLOL 25 MG TABLET PO STA (21:27)
[2022-08-16] MEDS: POTASSIUM CHLORIDE 20 MEQ/15 ML UDC PO SCH (22:26)
[2022-08-17 07:29] LABS: Hematocrit (blood only) 38.2 % (34.1-44.9); Hemoglobin 12.8 g/dl (12.0-16.0); Mean Corpuscular Hemoglobin 30.9 pg (25.0-34.0); Mean Corpuscular Hgb Conc 33.5 g/dL (32.0-36.0); Mean Corpuscular Volume 92.3 fL (80.0-100.0); Platelet Count 235 K/uL (130-400); RDW Coefficient of Variation 14.1 % (11.5-14.5); RDW Standard Deviation 47.8 fL (36.4-46.3); Red Blood Count 4.14 M/uL (3.93-5.22); White Blood Count 8.21 K/ul (4.8-10.8)
[2022-08-17 07:48] LABS: Calcium 8.7 mg/dl (8.5-10.1); Creatinine Clr Calc Pharmacy 82.2 ml/min; Est GFR (African American) 101.7 ml/min; Est GFR (Non-African American) 87.7 ml/min; Magnesium 1.9 mg/dl (1.7-2.4); Phosphorus 3.2 mg/dl (2.5-4.9); Potassium 3.5 mmol/L (3.5-5.1)
[2022-08-17] MEDS ORDERED: Heparin IV Adult Wt-Based Standard WITH Bolus Protocol IV STA (08:37)
[2022-08-17] MEDS ORDERED: FUROSEMIDE 20 MG TAB PO SCH (09:00)
[2022-08-17] MEDS ORDERED: hydroCHLOROthiazide 25 MG TAB PO SCH (09:00)
[2022-08-17] MEDS ORDERED: HEPARIN SOD (PORCINE) 1000 UNIT/ML IV ONE (09:15)
[2022-08-17] MEDS ORDERED: HEPARIN SODIUM/DEXTROSE 25,000 UNITS/500 ML BAG IV SCH (09:15)
[2022-08-17] MEDS: ATENOLOL 50 MG TABLET PO SCH (09:16)
[2022-08-17] MEDS: LOSARTAN POTASSIUM 50 MG TAB PO SCH (09:17)
--- NOTE | 2022-08-17 10:57 | Cardiology Consultation ---
Date of Consultation August 17, 2022 Assessment & Plan (1) Hypertensive urgency: (2) Chronic venous insufficiency: (3) Chest pain: Plan The patient presented with an episode of hypertensive urgency resulting in chest discomfort. Her blood pressure is now significantly improved on her home medical regimen. For further blood pressure control I will increase her hydrochlorothiazide to 25 mg daily Continue to monitor on telemetry overnight We will also increase oral Lasix to 40 mg daily given her lower extremity edema and I recommended she obtain and use compression stockings 2D echocardiogram unremarkable I do not believe this episode represents acute coronary syndrome and I will also discontinue her heparin at this time. History of Present Illness Reason for Consultation: Hypertensive urgency Requesting Physician: CAMERON Attending Physician: Josephine Ohara MD History of Present Illness It was my pleasure to see Mrs. Salcedo in cardiac consultation today. She presented to [facility] on 08/16/2022 with complaints of chest discomfort. She states that she was in her normal state of health and was simply sitting and sewing yesterday when she suddenly had a very uneasy sensation in her chest. She is having difficulty finding the words but does admit that it was somewhat of a pressure-like sensation. Upon arrival to the emergency department she was found to be significantly hypertensive but EKG and troponin were unremarkable. She was admitted to telemetry and her blood pressure has normalized on her home medical regiment. Currently she is without complaint. Otherwise, she notes that she has been having some issues with lower extremity edema as of late. Past medical history: 1. Chronic ventricular ectopy 2. Hypertension 3. EDMUNDO, poor tolerance to therapy stay 4. Hypothyroidism 5. Mild hyperlipidemia Allergies Allergy/AdvReac Type Severity Reaction Status Date / Time adhesive tape Allergy Intermediate Rash Verified 08/16/22 19:29 levofloxacin Allergy Intermediate Hives Verified 08/16/22 19:29 metformin Allergy Intermediate Chest Pain Verified 08/16/22 19:29 clarithromycin Allergy Mild Sore Verified 08/16/22 19:29 throat/tongue erythromycin base Allergy Mild SOB Verified 08/16/22 19:29 lisinopril Allergy Mild Cough Verified 08/16/22 19:29 glipizide Allergy Unknown Unknown Verified 08/16/22 19:33 Penicillins Allergy Unknown HIVES Verified 08/16/22 19:29 guaifenesin AdvReac Intermediate Dystonia Verified 08/16/22 19:29 metoprolol AdvReac Intermediate KNIGHT OR Verified 08/16/22 19:29 SOMETHING, FELT BAD sulfamethoxazole AdvReac Intermediate Nausea/vomi Verified 08/16/22 19:29 ting trimethoprim AdvReac Intermediate Nausea/vomi Verified 08/16/22 19:29 ting hydralazine AdvReac Palpitation Verified 08/16/22 20:47 s Home Medications Medication Instructions Recorded Confirmed Type losartan 100 mg tablet (Cozaar) 100 mg PO QAM 04/09/21 08/16/22 History potassium chloride 20 mEq/15 mL 20 meq PO BID 04/09/21 08/16/22 History oral liquid atenolol 50 mg tablet 50 mg PO DAILY 06/12/22 08/16/22 History meclizine 12.5 mg tablet 12.5 mg PO TID PRN dizziness #20 06/12/22 08/16/22 Rx tabs ergocalciferol (vitamin D2) 200 100 mcg PO DAILY 08/16/22 08/16/22 History mcg/mL (8,000 unit/mL) oral drops furosemide 20 mg tablet 20 mg PO QAM 08/16/22 08/16/22 History hydrochlorothiazide 25 mg tablet 12.5 mg PO QAM 08/16/22 08/16/22 History Patient History Medical History Acid reflux Arthritis Cardiac murmur dx 1 yr ago> Dr. Solano Carpal tunnel syndrome Diverticular disease High cholesterol HTN (hypertension) Nausea and vomiting after administration of anesthetic agent Osteoarthritis Palpitations on occasion Pre-diabetes no meds just diet Sleep apnea hx of> no longer using cpap> no issues with Slow to wake up after anesthesia Surgical History History of arthroscopy left knee History of carpal tunnel surgery of right wrist 07/25/2020 [place] History of colonoscopy History of dilatation and curettage History of esophagogastroduodenoscopy (EGD) History of laparoscopy History of tonsillectomy History of tooth extraction S/P knee replacement left S/P LASIK (laser assisted in situ keratomileusis) Family History Denies family history of Ovarian cancer Breast cancer Colorectal cancer Social History Smoking Status: Never smoker Second Hand Exposure: Yes (uncle smoked when lived with them as kid); Hx Alcohol Use: No Hx Substance Use: No Preferred Language: Cuban Communication Ability: Effective Student Development Coordinator Required: No Beliefs That Will Affect Care: None marital status: Single Current Living Situation: Alone Other Information That Helps Us Care for You: No Feels Safe at Home: Yes Assistive Devices: Glasses and Hearing Aid - Bilateral Review of Systems Review of Systems: All systems reviewed & are unremarkable except as noted in HPI & below Physical Exam Physical Exam: General: Awake, alert and oriented x 3. No acute distress. HEENT: Normocephalic, atraumatic. Pupils equal, round and reactive to light and accommodation. Extraocular muscles are intact. Anicteric sclera. Moist mucous membranes. Neck: No JVD. No bruit. Cardiovascular: Regular. Positive S-4. Normal S-1 and S-2. No S-3. 3/6 mid to late systolic ejection murmur, greatest at the right sternal border, second intercostal space with radiation to the bilateral carotids. No rubs. Pulmonary: Clear to auscultation bilaterally. No rales, rhonchi, or wheezing. Abdomen: Bowel sounds x 4, soft. No rebound, guarding or tenderness. No organomegaly. Extremities: No clubbing, cyanosis or edema. +2 pedal pulses bilaterally. Skin: Warm and dry. Results & Data ([facility]) Vital Signs (Past 12 Hours) Vital Signs Temp Pulse Pulse Pulse Resp BP Pulse Ox 08/17/22 08:05 36.8 C 62 18 150/77 H 96 08/17/22 06:21 58 L 08/17/22 04:59 36.7 C 67 16 136/75 97 08/17/22 01:38 77 08/17/22 01:30 60 08/17/22 01:30 36.7 C 79 18 169/73 H 99 08/17/22 01:35 08/16/22 23:15 61 15 118/56 L 94 08/16/22 23:15 Pulse Ox O2 Del Method 08/17/22 08:05 Room Air 08/17/22 06:21 08/17/22 04:59 Room Air 08/17/22 01:38 08/17/22 01:30 08/17/22 01:30 Room Air 08/17/22 01:35 Room Air 08/16/22 23:15 Room Air 08/16/22 23:15 94
--- NOTE | 2022-08-17 13:20 | Hospitalist Progress Note ---
Date of Service August 17, 2022 Assessment & Plan (1) Hypertension: Plan #. Chest discomfort #. Hypertensive Urgency Patient comes in with chest discomfort associated with elevated blood pressure at home. Admitting blood pressure of 199/77, admitting troponin WNL, admitting EKG with sinus rhythm with first-degree AV block and nonspecific TW abn. Admitting CXR with no acute findings. Troponin up trended, peaked at 50. Follow-up EKG on 08/17 with T wave inversion i n anterior leads. Echo with normal LV chamber size with moderate concentric LVH, normal LV systolic function, EF 60 to 65%, no segmental left ventricular wall motion abnormalities, grade 1 diastolic dysfunction. Telemetry monitoring, EKG with chest pain. IV hydralazine has been put on allergy list. Patient reports having trouble with Lopressor in the past. Patient is currently on her home blood pressure medication, blood pressure under control On IV heparin drip due to uptrending troponin and no change in EKG, cardiology consult, await recommendation. Monitor and replete electrolytes. #. Other chronic medical conditions: Continue with home meds Heparin subcu Full code Admission and Anticipated Discharge Date Admission Date: August 16, 2022 Subjective Patient seen and examined at bedside as a follow-up of chest discomfort and hypertensive urgency. Patient was lying in bed, on room air, NAD, denies any new acute event overnight. Patient had palpitations/flushing with 10 mg IV hydralazine last evening received at 1944 hrs for high blood pressure. Patient had received 5 Mg IV hydralazine at 1801 hrs. on the same day with no side effect. Patient received atenolol and IV fluid bolus for this side effect of IV hydralazine. Today patient reports resolution of her chest discomfort. Patient denies any headache/dizziness/sore throat/cough/other review of symptoms. Patient reports eating okay. Physical Exam Physical Exam: GENERAL: Alert and oriented x3. NAD, on RA. HEENT: No pallor, no icterus. Pupils equal, round and reactive to light. Oral mucosa moist. NECK: No JVD, no neck masses. HEART: S1 and S2 heard. Regular rate and rhythm. No murmur, no gallop. RESPIRATORY SYSTEM: Normal AP diameter. No accessory muscle use. No wheezing, no crackles. ABDOMEN: Soft, bowel sounds present, nontender, no distention. CENTRAL NERVOUS SYSTEM: No facial droop. Speech is clear. Obeys simple commands. Moves extremities. EXTREMITIES: trace ble edema, no erythema seen. Results & Data Results & Data ([facility]) Vital Signs (Past 12 Hours) Vital Signs Temp Pulse Pulse Resp BP Pulse Ox O2 Del Method 08/17/22 11:48 36.7 C 90 18 135/76 95 Room Air 08/17/22 08:05 36.8 C 62 18 150/77 H 96 Room Air 08/17/22 06:21 58 L 08/17/22 04:59 36.7 C 67 16 136/75 97 Room Air 08/17/22 01:38 77 08/17/22 01:30 60 08/17/22 01:30 36.7 C 79 18 169/73 H 99 Room Air 08/17/22 01:35 Room Air
[2022-08-17] MEDS ORDERED: hydroCHLOROthiazide 25 MG TAB PO STA (14:26)
[2022-08-17] MEDS: POTASSIUM CHLORIDE 20 MEQ/15 ML UDC PO SCH ×2 (14:38→20:07)
[2022-08-17 16:43] LABS: Partial Thromboplastin Ratio 1.3; Partial Thromboplastin Time 35.3 Seconds (21.0-31.0)
--- NOTE | 2022-08-18 06:08 | Electrocardiogram Report ---
Test Reason : Blood Pressure : / mmHG Vent. Rate : 065 BPM Atrial Rate : 065 BPM P-R Int : 260 ms QRS Dur : 084 ms QT Int : 408 ms P-R-T Axes : 037 -05 006 degrees QTc Int : 424 ms Sinus rhythm with 1st degree A-V block Nonspecific T wave abnormality Intermittent LBBB Abnormal ECG When compared with ECG of 09-APR-2021 16:09, Left bundle branch block is now Present Nonspecific T wave abnormality now evident in Anterolateral leads Confirmed by Miguel Angel Gooden ([id number]) on 08/18/2022 6:07:56 AM Referred By: REFERRED SELF Confirmed By:Miguel Angel Gooden
--- NOTE | 2022-08-18 06:18 | Electrocardiogram Report ---
Test Reason : Blood Pressure : / mmHG Vent. Rate : 095 BPM Atrial Rate : 095 BPM P-R Int : 136 ms QRS Dur : 142 ms QT Int : 406 ms P-R-T Axes : 031 -42 129 degrees QTc Int : 510 ms Normal sinus rhythm Left axis deviation Left bundle branch block Abnormal ECG When compared with ECG of 16-AUG-2022 16:00, NM interval has decreased Confirmed by Miguel Angel Gooden ([id number]) on 08/18/2022 6:17:56 AM Referred By: REFERRED SELF Confirmed By:Miguel Angel Gooden
--- NOTE | 2022-08-18 06:29 | Electrocardiogram Report ---
Test Reason : Blood Pressure : / mmHG Vent. Rate : 071 BPM Atrial Rate : 071 BPM P-R Int : 270 ms QRS Dur : 082 ms QT Int : 414 ms P-R-T Axes : 056 009 -16 degrees QTc Int : 449 ms Sinus rhythm with 1st degree A-V block and Premature atrial complexes with Aberrant conduction Low voltage QRS T wave abnormality, consider anterior ischemia Intermittent LBBB Abnormal ECG When compared with ECG of 16-AUG-2022 20:07, Premature atrial complexes are now Present UT interval has increased Confirmed by Miguel Angel Gooden ([id number]) on 08/18/2022 6:29:12 AM Referred By: REFERRED SELF Confirmed By:Miguel Angel Gooden
[2022-08-18] MEDS: LOSARTAN POTASSIUM 50 MG TAB PO SCH (08:50)
[2022-08-18] MEDS: POTASSIUM CHLORIDE 20 MEQ/15 ML UDC PO SCH (08:50)
[2022-08-18] MEDS: ATENOLOL 50 MG TABLET PO SCH (08:51)
[2022-08-18] MEDS ORDERED: hydroCHLOROthiazide 25 MG TAB PO SCH (09:00)
[2022-08-18] MEDS ORDERED: FUROSEMIDE 40 MG TAB PO SCH (09:00)
--- NOTE | 2022-08-18 11:36 | Discharge Summary ---
Date of Service August 18, 2022 Admission HPI Per Admitting Provider 86-year-old lady with PMH of prediabetes, HLD, sleep apnea, HTN, ventricular ectopy, GERD presented to the ED 08/16 with complaint of " not feeling normal in her chest". Per patient says started feeling heaviness in the chest around 2:30 PM while she was sewing, no radiation, her blood pressure was elevated at 180/90, pulse she took at home was 108 at highest, had some perceived difficulty with breathing, denies nausea/sweating/palpitation. Patient denies any cough/sore throat/acute changes in her bowel or bladder habit/abnormal appetite/pain anywhere in the body. Patient denies use of smoke tobacco/alcohol use/recreational drug use. Full code as per my discussion with the patient. 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 Family history positive for massive AL in her mother at age 63, reports " lots of heart problems including bypass surgery" in her father. Follows cardiology every 6-month. Denies any cancer in the family. Medications were reviewed with the patient at bedside. Patient's daughter Polina was present at bedside. Plan of care discussed with the patient and her daughter. Admission Exam Per Admitting Provider GENERAL: Alert and oriented x3. NAD, on RA. HEENT: No pallor, no icterus. Pupils equal, round and reactive to light. Oral mucosa moist. NECK: No JVD, no neck masses. HEART: S1 and S2 heard. Regular rate and rhythm. No murmur, no gallop. RESPIRATORY SYSTEM: Normal AP diameter. No accessory muscle use. No wheezing, b/b crackles. ABDOMEN: Soft, bowel sounds present, nontender, no distention. CENTRAL NERVOUS SYSTEM: No facial droop. Speech is clear. Obeys simple commands. Moves extremities. EXTREMITIES: trace ble edema, no erythema seen. Principal Diagnosis Chest discomfort Hypertensive urgency Discharge Exam GENERAL: Alert and oriented x3. NAD, on RA. HEENT: No pallor, no icterus. Pupils equal, round and reactive to light. Oral mucosa moist. NECK: No JVD, no neck masses. HEART: S1 and S2 heard. Regular rate and rhythm. No murmur, no gallop. RESPIRATORY SYSTEM: Normal AP diameter. No accessory muscle use. No wheezing, no crackles. ABDOMEN: Soft, bowel sounds present, nontender, no distention. CENTRAL NERVOUS SYSTEM: No facial droop. Speech is clear. Obeys simple commands. Moves extremities. EXTREMITIES: trace ble edema, no erythema seen. Discharge Data Allergies Allergy/AdvReac Type Severity Reaction Status Date / Time adhesive tape Allergy Intermediate Rash Verified 08/16/22 19:29 levofloxacin Allergy Intermediate Hives Verified 08/16/22 19:29 metformin Allergy Intermediate Chest Pain Verified 08/16/22 19:29 clarithromycin Allergy Mild Sore Verified 08/16/22 19:29 throat/tongue erythromycin base Allergy Mild SOB Verified 08/16/22 19:29 lisinopril Allergy Mild Cough Verified 08/16/22 19:29 glipizide Allergy Unknown Unknown Verified 08/16/22 19:33 Penicillins Allergy Unknown HIVES Verified 08/16/22 19:29 guaifenesin AdvReac Intermediate Dystonia Verified 08/16/22 19:29 metoprolol AdvReac Intermediate KNIGHT OR Verified 08/16/22 19:29 SOMETHING, FELT BAD sulfamethoxazole AdvReac Intermediate Nausea/vomi Verified 08/16/22 19:29 ting trimethoprim AdvReac Intermediate Nausea/vomi Verified 08/16/22 19:29 ting hydralazine AdvReac Palpitation Verified 08/16/22 20:47 s Consultations 08/16/22 18:11 ED Decision to Admit Stat 08/16/22 19:02 Consult Cardiology Routine Hospital Course (1) Hypertension: Plan 86-year-old lady was managed for the following: #. Chest discomfort #. Hypertensive Urgency Patient comes in with chest discomfort associated with elevated blood pressure at home. Admitting blood pressure of 199/77, admitting troponin WNL, admitting EKG with sinus rhythm with first-degree AV block and nonspecific TW abn. Admitting CXR with no acute findings. Troponin up trended, peaked at 50. Follow-up EKG reviewed, no concern for ACS per cardio eval. Echo with normal LV chamber size with moderate concentric LVH, normal LV systolic function, EF 60 to 65%, no segmental left ventricular wall motion abnormalities, grade 1 diastolic dysfunction. IV hydralazine has been put on allergy list. Patient reports having trouble with Lopressor in the past. BP meds optimized, blood pressure under control Pt w/ no chest pain. Pt to f/u w/ PCP and Cardio as OP; labs in 1 week at PCP office. #. Other chronic medical conditions: Continue with home meds Heparin subcu Full code Patient being discharged home with following instruction at the point of discharge: Follow-up with your primary care physician within a week time and likely you will need blood lab CBC/CMP. Follow-up with your cardiology as an outpatient as prior. Because of your uncontrolled hypertension, your blood pressure medication has been optimized, follow-up closely with your PCP for ongoing management of her blood pressure. Maintain heart healthy diet and low-sodium diet [less than 2 g/day]. Take your medications as prescribed. Home Health Attestation I certify that this patient is under my care and that I, or a physicians chemistry research assistant working with me, had a face to-face encounter that meets the home health [id number] encounter requirements with this patient. The encounter with the patient was in whole, or in part, for the following medical condition, which is the primary reason for home health care (list medical condition): I certify that, based on my findings, the following services are medically necessary home health services: My clinical findings support the need for the above services because: Further, I certify that my clinical findings support that this patient is homebound (i.e. absences from home require considerable and taxing effort and are for medical reasons or latter day services or infrequently or of short duration when for other reasons) because: Certification for Home Health Services: Based on the above findings, I certify that this patient is confined to the home and needs intermittent half-way care, physical therapy and/or speech therapy or continues to need occupational therapy. The patient is under my care, and I have initiated the establishment of the plan of care. This patient will be followed by a physician who will periodically review the plan of care. Total Time Total Time Spent Total Time Spent (In Minutes): 45 Discharge Plan Discharge Items Patient Disposition: Home - Self-Care Reason For Visit: CHEST DISCOMFORT, HIGH BP Discharge Diagnosis: Chest discomfort Hypertensive urgency Activity: Resume your previous activity Non-emergency contact: Primary Care Provider Call non-emergency contact if: you have any medication questions, your symptoms worsen and your temperature is above 101 Follow-up/Referrals: Vikki Stock PA-C [Primary Care Provider] - Mary Del Toro CRNP [Nurse Practitioner] - (Date & Time 09/03/2022 3:30 PM Provider [facility] Department Cardiology, [facility] ) Diet: Heart Healthy and Low Sodium (2gm) Addtl Attending Provider Instructions: Follow-up with your primary care physician within a week time and likely you will need blood lab CBC/CMP. Follow-up with your cardiology as an outpatient as prior. Because of your uncontrolled hypertension, your blood pressure medication has been optimized, follow-up closely with your PCP for ongoing management of her blood pressure. Maintain heart healthy diet and low-sodium diet [less than 2 g/day]. Take your medications as prescribed. Pending Studies at Discharge: No Stand-Alone Forms: My [facility], Smoking Cessation Medications and DC Order Prescriptions: New furosemide 40 mg Tablet 40 mg PO QAM Qty: 30 0RF hydrochlorothiazide 25 mg Tablet 25 mg PO QAM Qty: 30 0RF Continued potassium chloride 20 mEq/15 mL Liquid 20 meq PO BID losartan [Cozaar] 100 mg tablet 100 mg PO QAM ergocalciferol (vitamin D2) [Vitamin D2] 200 mcg/mL (8,000 unit/mL) Drops 100 mcg PO DAILY Rx Instructions: 1/2 dropper full atenolol 50 mg Tablet 50 mg PO DAILY meclizine 12.5 mg tablet 12.5 mg PO TID PRN (Reason: dizziness) Qty: 20 0RF Discontinued hydrochlorothiazide 25 mg Tablet 12.5 mg PO QAM furosemide 20 mg Tablet 20 mg PO QAM Discharge Orders: Discharge Order (Routine); Ordered 08/18/22 Ordered By: Josephine Ohara Admission Data Admit Date/Time: 08/16/22 19:03 Attending Provider: Josephine Ohara Admit Provider: Josephine Ohara Primary Care Provider: Vikki Stock Other Providers: Chao Kennedy ; Ángel Miranda ; [facility]
--- NOTE | 2022-08-18 12:58 | Cardiology Progress Note ---
Date of Service August 18, 2022 Assessment & Plan (1) Hypertensive urgency: (2) Chronic venous insufficiency: (3) Chest pain: Plan The patient presented with an episode of hypertensive urgency resulting in chest discomfort. Her blood pressure is now stabilized with increasing hydrochlorothiazide Lower extremity edema has also improved with significant diuresis after the addition of p.o. Anthony Trevino to DC to home on current medical regimen Will need PCP follow-up with a BMP within a week and follow-up with cardiology in 2 to 4 weeks Admission and Anticipated Discharge Date Admission Date: August 16, 2022 Subjective Patient seen and examined. Chart reviewed. Telemetry reviewed. States that she feels great today. Review of Systems Review of Systems: All systems reviewed & are unremarkable except as noted in HPI & below Physical Exam Physical Exam: General: Awake, alert and oriented x 3. No acute distress. HEENT: Normocephalic, atraumatic. Pupils equal, round and reactive to light and accommodation. Extraocular muscles are intact. Anicteric sclera. Moist mucous membranes. Neck: No JVD. No bruit. Cardiovascular: Regular. Positive S-4. Normal S-1 and S-2. No S-3. 3/6 mid to late systolic ejection murmur, greatest at the right sternal border, second intercostal space with radiation to the bilateral carotids. No rubs. Pulmonary: Clear to auscultation bilaterally. No rales, rhonchi, or wheezing. Abdomen: Bowel sounds x 4, soft. No rebound, guarding or tenderness. No organomegaly. Extremities: No clubbing, cyanosis or edema. +2 pedal pulses bilaterally. Skin: Warm and dry. Results & Data ([facility]) Vital Signs (Past 12 Hours) Vital Signs Temp Pulse Pulse Resp BP Pulse Ox O2 Del Method 08/18/22 12:35 36.4 C L 53 L 17 138/73 98 Room Air 08/18/22 08:26 36.8 C 61 18 131/74 97 Room Air 08/18/22 05:55 57 L 08/18/22 02:39 37.0 C 63 17 129/71 96 Room Air
== END 2022-08-18 14:10 | disposition home or self-care (01) | DRG 281 ==
LOC: ED 15:30 → EDINP 19:03 → 4W 21:57